=== PATIENT | male | born 1950 | race Caucasian/White ===

== ENCOUNTER 2022-04-24 09:53 | Emergency (ER) | payer BC, MEDICARE ==
[~2022-04-24] VITALS: Ht 243.8 cm; Wt 90.7 kg
--- NOTE | 2022-04-24 10:20 | NUR ---
BIB Family "Diagnosed with Covid 1wk ago. On/off fever since". AMBULATORY, PLACED ON BED, AAOX4.
[2022-04-24] MEDS ORDERED: DOXY-326 PO (10:37)
[2022-04-24] MEDS ORDERED: METO25TA20 PO (10:37)
[2022-04-24] MEDS ORDERED: LISI-768 PO (10:37)
[2022-04-24] MEDS ORDERED: ERGO500093 PO (10:37)
[2022-04-24] MEDS ORDERED: ATOR10TA PO (10:37)
[2022-04-24] MEDS ORDERED: METH4TAB16 PO (10:37)
[2022-04-24] MEDS ORDERED: DUTA0.5C37 PO (10:37)
[2022-04-24] MEDS ORDERED: ALBU18HF2 INH (10:37)
[2022-04-24] MEDS ORDERED: IPRATROPIUM NEB FS 0.5 MG/2.5 ML AMPUL.NEB NEB ONE (11:00)
[2022-04-24] MEDS ORDERED: ALBUTEROL FS 2.5 MG/3 ML VIAL.NEB NEB ONE (11:00)
--- NOTE | 2022-04-24 11:00 | NUR ---
ANGELA WU AND SHAR SENT TO LAB
--- NOTE | 2022-04-24 11:13 | NUR ---
IV LINE ESTABLISHED ON [id number], BLOOD DRAWN AND SENT TO LAB.
[2022-04-24] MEDS ORDERED: ALBUTEROL FS 2.5 MG/0.5 ML VIAL.NEB ONE (11:15)
[2022-04-24] MEDS ORDERED: IPRATROPIUM NEB FS 0.5 MG/2.5 ML AMPUL.NEB ONE (11:15)
--- NOTE | 2022-04-24 11:15 | NUR ---
RESP. TECH AT BED SIDE FOR NEBULIZER.
[2022-04-24 11:23] LABS: BASOPHILS % (AUTO) 0.3 % (0.0-2.0); EOSINOPHILS % (AUTO) 0.1 % (0.0-6.0); HEMATOCRIT 55 % (39-51); HEMOGLOBIN 17.9 g/dL (13.5-17.5); LYMPHOCYTES # (AUTO) 1.1 K/uL (0.8-4.8); LYMPHOCYTES % (AUTO) 13.9 % (20.0-44.0); MEAN CORPUSCULAR HGB CONC 33 g/dl (31.0-36.0); MEAN CORPUSCULAR VOLUME 92 fL (80-96); MONOCYTES # (AUTO) 0.9 K/uL (0.1-1.30); MONOCYTES % (AUTO) 11.7 % (2.0-12.0); NEUTROPHILS # (AUTO) 5.9 K/uL (1.8-8.9); PLATELET COUNT (AUTO) 143 K/uL (150-450); RED BLOOD CELL COUNT(AUTO) 5.95 MIL/uL (4.5-6.0)
[2022-04-24 11:40] LABS: CALCIUM, SERUM 8.9 mg/dL (8.5-10.1); CARBON DIOXIDE 29 mmol/L (21-32); CHLORIDE 103 mmol/L (98-107); CREATININE 1.2 mg/dL (0.6-1.3); GLUCOSE 106 mg/dL (74-106); SODIUM SERUM 141 mmol/L (136-145); UREA NITROGEN, BLOOD 29 mg/dL (7-18)
[2022-04-24 11:52] LABS: ALANINE AMINOTRANSFERASE 25 U/L (12-78); ALBUMIN 3.6 g/dL (3.4-5.0); ALKALINE PHOSPHATASE 60 U/L (46-116); ASPARTATE AMINOTRANSFERASE 18 U/L (15-37); BILIRUBIN,DIRECT 0.1 mg/dL (0.0-0.2); BILIRUBIN,TOTAL 0.4 mg/dL (0.2-1.0); TOTAL PROTEIN, SERUM 7.5 g/dL (6.4-8.2)
--- NOTE | 2022-04-24 13:53 | NUR ---
IV removed. Catheter intact and site benign. Pressure and 4x4 applied to site. No bleeding noted.Patient discharged to home in stable condition. Written and verbal after care instructions given. Patient verbalizes understanding of instruction.
[2022-04-24 13:54] VITALS: BP 145/81
== END 2022-04-24 13:55 | disposition home or self-care (01) ==
LOC: ER 09:55
DX: U07.1 COVID-19 (principal); J44.1 Chronic obstructive pulmonary disease with (acute) exacerbation; F17.200 Nicotine dependence, unspecified, uncomplicated; Z79.899 Other long term (current) drug therapy
CPT/HCPCS: 36415; 71045-TC; 80048-TC; 80076-TC; 83880; 84484-TC; 85025-TC; C9803